=== PATIENT | male | born 1980 | race Caucasian/White ===

== ENCOUNTER 2020-02-23 14:34 | Emergency (ER) | payer SELFPAY ==
[2020-02-23 15:25] LABS: Absolute Lymphocytes (CBC) 1.9 K/uL (0.7-4.9); Basophils % 0.8 % (0-1.3); Hematocrit 42.7 % (39.6-49.0); Lymphocytes % 25.2 % (15.3-44.8); MPV 7.9 fL (7.6-11.3); RBC Red Blood Cell Count 5.06 M/uL (4.33-5.43)
[2020-02-23 15:44] LABS: ALT/SGPT 26 U/L (12-78); AST/SGOT 16 U/L (15-37); Albumin 3.7 g/dL (3.4-5.0); Alkaline Phosphatase 54 U/L (45-117); BUN Blood Urea Nitrogen 13 mg/dL (7-18); Bicarbonate 24 mmol/L (21-32); Bilirubin Direct < 0.1 mg/dL (0-0.2); Bilirubin Total 0.4 mg/dL (0.2-1.0); Glucose Level 105 mg/dL (74-106); Magnesium 1.8 mg/dL (1.8-2.4); NT PRO-BNP 114 pg/mL (<125); Potassium 3.6 mmol/L (3.5-5.1); Protein, Total 6.9 g/dL (6.4-8.2); Sodium Level 142 mmol/L (136-145); Troponin (Emerg Dept Use Only) < 0.02 ng/mL (0.0-0.045)
--- NOTE | 2020-02-23 15:49 | RAD REPORT ---
EXAM DESCRIPTION: RAD - Chest Single View - 02/23/2020 3:24 pm CLINICAL HISTORY: CHEST PAIN, left side COMPARISON: None TECHNIQUE: AP portable chest image was obtained 02/23/2020 3:24 pm . FINDINGS: Lungs are clear. Heart and vasculature are normal. No measurable pleural effusion and no p neumothorax. No acute bony abnormality seen. No acute aortic findings suspected. IMPRESSION: No acute cardiopulmonary process.
--- NOTE | 2020-02-23 16:01 | EDPHYS ---
Physician Documentation [facility] Name: Yamilet Enamorado Age: 39 yrs Sex: Male : 1980 Arrival Date: 02/23/2020 Time: 14:48 Bed 19 Private MD: ED Physician Jaylan Cancino HPI: 02/22 15:51 This 39 yrs old Male presents to ER via Ambulatory with complaints of Chest jr8 Pain. 15:51 The patient or guardian reports chest pain that is located primarily in the substernal jr8 area. The pain radiates to the left arm. Associated signs and symptoms: Pertinent positives: None. The chest pain is described as a heaviness. Duration: The patient or guardian reports multiple episodes, that are intermittent, that wax and wane, the episodes last approximately 5 minute(s). Modifying factors: The symptoms are alleviated by nothing. the symptoms are aggravated by nothing. Severity of pain: At its worst the pain was moderate in the emergency department the pain has resolved. The patient has not experienced similar symptoms in the past. The patient has not recently seen a physician. Stated that pain has been going on for about 5 days now. Historical: - Allergies: 14:51 No Known Allergies; iw - Home Meds: 14:51 None [Active]; iw - PMHx: 14:51 Hypertension; Anxiety; iw - PSHx: 14:51 neck; iw - Immunization history:: Adult Immunizations not up to date. - Social history:: Smoking status: Patient/guardian denies using tobacco, the patient reports quitting approximately 12 years ago. ROS: 15:51 Eyes: Negative for injury, pain, redness, and discharge, ENT: Negative for injury, jr8 pain, and discharge, Neck: Negative for injury, pain, and swelling, Respiratory: Negative for shortness of breath, cough, wheezing, and pleuritic chest pain, Abdomen/GI: Negative for abdominal pain, nausea, vomiting, diarrhea, and constipation, Back: Negative for injury and pain, MS/Extremity: Negative for injury and deformity, Skin: Negative for injury, rash, and discoloration, Neuro: Negative for headache, weakness, numbness, tingling, and seizure. 15:51 Cardiovascular: Positive for chest pain, Negative for edema, orthopnea, palpitations, paroxysmal nocturnal dyspnea. Exam: 15:51 Eyes: Pupils equal round and reactive to light, extra-ocular motions intact. Lids and jr8 lashes normal. Conjunctiva and sclera are non-icteric and not injected. Cornea within normal limits. Periorbital areas with no swelling, redness, or edema. ENT: Nares patent. No nasal discharge, no septal abnormalities noted. Tympanic membranes are normal and external auditory canals are clear. Oropharynx with no redness, swelling, or masses, exudates, or evidence of obstruction, uvula midline. Mucous membranes moist. Neck: Trachea midline, no thyromegaly or masses palpated, and no cervical lymphadenopathy. Supple, full range of motion without nuchal rigidity, or vertebral point tenderness. No Meningismus. Cardiovascular: Regular rate and rhythm with a normal S1 and S2. No gallops, murmurs, or rubs. Normal PMI, no JVD. No pulse deficits. Respiratory: Lungs have equal breath sounds bilaterally, clear to auscultation and percussion. No rales, rhonchi or wheezes noted. No increased work of breathing, no retractions or nasal flaring. Abdomen/GI: Soft, non-tender, with normal bowel sounds. No distension or tympany. No guarding or rebound. No evidence of tenderness throughout. Back: No spinal tenderness. No costovertebral tenderness. Full range of motion. Skin: Warm, dry with normal turgor. Normal color with no rashes, no lesions, and no evidence of cellulitis. MS/ Extremity: Pulses equal, no cyanosis. Neurovascular intact. Full, normal range of motion. Neuro: Awake and alert, GCS 15, oriented to person, place, time, and situation. Cranial nerves II-XII grossly intact. Motor strength 5/5 in all extremities. Sensory grossly intact. Cerebellar exam normal. Normal gait. 15:51 Chest/axilla: Normal chest wall appearance and motion. Nontender with no deformity. jr8 No lesions are appreciated. 15:51 ECG was reviewed by the Attending Physician. jr8 Vital Signs: 14:48 BP 142 / 98; Pulse 70; Resp 16; Temp 97.3; Pulse Ox 100% on R/A; Weight 97.52 kg; iw Height 5 ft. 6 in. (167.64 cm); Pain 4/10; 15:04 BP 138 / 90; Pulse 69; Resp 17; Pulse Ox 100% ; Pain 4/10; jl7 16:29 BP 130 / 91; Pulse 51; Resp 17 S; Pulse Ox 98% on R/A; jl7 14:48 Body Mass Index 34.70 (97.52 kg, 167.64 cm) iw MDM: 14:51 Patient medically screened. jr8 15:51 Differential diagnosis: abnormal EKG, acute myocardial infarction, acute pericarditis, jr8 anxiety, chest wall pain, cholecystitis, Cholelithiasis costochondritis, esophagitis, gastritis, herpes zoster, Amber-Lua syndrome, mitral valve prolapse, myocarditis, pleurisy, pneumonia, pulmonary embolus, stable angina, thoracic aortic disection, unstable angina. Data reviewed: vital signs, nurses notes, lab test result(s), EKG, radiologic studies, plain films. Data interpreted: Pulse oximetry: on room air is 100 %. Interpretation: normal. Counseling: I had a detailed discussion with the patient and/or guardian regarding: the historical points, exam findings, and any diagnostic results supporting the discharge/admit diagnosis, lab results, radiology results. 15:55 HEART Score: History: Moderately Suspicious (1), ECG: Normal (0), Age: < or = 45 [facility] (0), Risk Factors: > or = 3 Risk factors for atherosclerotic disease (2), [Hypercholesterolemia] [Hypertension] [+ Family HX] Troponin: < or = 1 x Normal Limit (0), Total Score = 3. ED course: Heart Score of 3...Low risk at this point. Pain free and hemodynamically stable. Has been intermittent for past 5 days. Nothing exacerbates the pain. ECG unremarkable. Recommend f/u with cardiology in next 48 hours for formal cardiology evaluation based on symptoms and family history . 02/22 15:02 Order name: Basic Metabolic Panel; Complete Time: 15:51 02/22 15:02 Order name: CBC with Diff; Complete Time: 15:43 02/22 15:02 Order name: LFT's; Complete Time: 15:51 02/22 15:02 Order name: Magnesium; Complete Time: 15:02/22 15:02 Order name: NT PRO-BNP; Complete Time: 15:02/22 15:02 Order name: PT-INR; Complete Time: 15:43 02/22 15:02 Order name: Troponin (emerg Dept Use Only); Complete Time: 15:51 02/22 15:02 Order name: XRAY Chest (1 view); Complete Time: 15:51 02/22 15:02 Order name: EKG; Complete Time: 15:03 02/22 15:02 Order name: Cardiac monitoring; Complete Time: 16:28 02/22 15:02 Order name: EKG - Nurse/Tech; Complete Time: 16:02/22 15:02 Order name: IV Saline Lock; Complete Time: 16:02/22 15:03 Order name: Labs collected and sent; Complete Time: 16:02/22 15:03 Order name: O2 Per Protocol; Complete Time: 16:02/22 15:03 Order name: O2 Sat Monitoring; Complete Time: 16: EC:51 Rate is 66 beats/min. Rhythm is regular, Normal Sinus Rhythm. QRS [place] is Normal. VT jr8 interval is normal at 162 msec. QRS interval is normal at 90 msec. QT interval is normal at 388 msec. No Q waves. T waves are Normal. No ST changes noted. Clinical impression: Normal ECG and No evidence of ischemia. Interpreted by me. Reviewed by me. Administered Medications: No medications were administered Disposition: 17:48 Co-signature as Attending Physician, Jaylan Cancino MD. rn Disposition: 02/23/20 16:01 Discharged to Home. Impression: Chest pain, unspecified. - Condition is Stable. - Discharge Instructions: Nonspecific Chest Pain. - Medication Reconciliation Form, Thank You Letter, Antibiotic Education, Prescription Opioid Use form. - Follow up: Haresh Ramirez MD; When: 48 Hours; Reason: Recheck today's complaints, Continuance of care, Re-evaluation by your physician. - Problem is new. - Symptoms are resolved. Signatures: Dispatcher [employer] Adamaris David RN RN iw Nieto, Roman, MD MD rn Roszak, Josh, BETO PÉREZ jr8 Silvina Mancini RN RN jl7 Corrections: (The following items were deleted from the chart) 16:34 16:01 02/23/2020 16:01 Discharged to Home. Impression: Chest pain, unspecified. jl7 Condition is Stable. Forms are Medication Reconciliation Form, Thank You Letter, Antibiotic Education, Prescription Opioid Use. Follow up: Haresh Ramirez; When: 48 Hours; Reason: Recheck today's complaints, Continuance of care, Re-evaluation by your physician. Problem is new. Symptoms are resolved. jr8
--- NOTE | 2020-02-23 16:01 | ER ---
Nurse's Notes [facility] Name: Yamilet Enamorado Age: 39 yrs Sex: Male : 1980 Arrival Date: 02/23/2020 Time: 14:48 Bed 19 Private MD: Diagnosis: Chest pain, unspecified Presentation: 02/22 14:48 Chief complaint: Patient states: chest pains on left side and down left arm for four iw days, intermittent, episodes last about 3-4 minutes, happens every 20 minutes, has eased up now. Coronavirus screen: At this time, the client does not indicate any symptoms associated with coronavirus-19. Ebola Screen: Patient negative for fever greater than or equal to 101.5 degrees Fahrenheit, and additional compatible Ebola Virus Disease symptoms Patient denies exposure to infectious person. Patient denies travel to an Ebola-affected area in the 21 days before illness onset. No symptoms or risks identified at this time. Initial Sepsis Screen: Does the patient meet any 2 criteria? No. Patient's initial sepsis screen is negative. Does the patient have a suspected source of infection? No. Patient's initial sepsis screen is negative. Risk Assessment: Do you want to hurt yourself or someone else? Patient reports no desire to harm self or others. Onset of symptoms was February 19, 2020. 14:48 Method Of Arrival: Ambulatory iw 14:48 Acuity: DONNA 3 iw Historical: - Allergies: 14:51 No Known Allergies; iw - Home Meds: 14:51 None [Active]; iw - PMHx: 14:51 Hypertension; Anxiety; iw - PSHx: 14:51 neck; iw - Immunization history:: Adult Immunizations not up to date. - Social history:: Smoking status: Patient/guardian denies using tobacco, the patient reports quitting approximately 12 years ago. Screenin:04 Abuse screen: Denies threats or abuse. Denies injuries from another. Nutritional jl7 screening: No deficits noted. Tuberculosis screening: No symptoms or risk factors identified. Fall Risk IV access (20 points). Total Don Fall Scale indicates No Risk (0-24 pts). Assessment: 14:55 General: Appears in no apparent distress. uncomfortable, Behavior is calm, cooperative, jl7 appropriate for age. Pain: Complains of pain in anterior aspect of left upper chest Pain radiates to left arm Pain currently is 4 out of 10 on a pain scale. Pain began 2-3 days ago. Is intermittent. Neuro: Level of Consciousness is awake, alert, obeys commands, Oriented to person, place, time, situation. Cardiovascular: Patient's skin is warm and dry. Rhythm is regular. Respiratory: Airway is patent Respiratory effort is even, unlabored, Respiratory pattern is regular, symmetrical. Derm: Skin is pink, warm \T\ dry. 15:04 Reassessment: ERP at bedside. jl7 Vital Signs: 14:48 BP 142 / 98; Pulse 70; Resp 16; Temp 97.3; Pulse Ox 100% on R/A; Weight 97.52 kg; iw Height 5 ft. 6 in. (167.64 cm); Pain 4/10; 15:04 BP 138 / 90; Pulse 69; Resp 17; Pulse Ox 100% ; Pain 4/10; jl7 16:29 BP 130 / 91; Pulse 51; Resp 17 S; Pulse Ox 98% on R/A; jl7 14:48 Body Mass Index 34.70 (97.52 kg, 167.64 cm) iw ED Course: 14:48 Patient arrived in ED. iw 14:50 Triage completed. iw 14:51 Chetan Cernshaw PA is PHCP. jr8 14:51 Jaylan Cancino MD is Attending Physician. jr8 14:51 Arm band placed on. iw 14:52 Silvina Mancini, VICKY is Primary Nurse. jl7 15:04 Patient has correct armband on for positive identification. Bed in low position. Call jl7 light in reach. Side rails up X 1. management technician on. Pulse ox on. NIBP on. 15:04 EKG done, by ED staff, reviewed by Chetan PÉREZ. Patient maintains SpO2 saturation jl7 greater than 95% on room air. 15:24 XRAY Chest (1 view) In Process Unspecified. EDMS 16:00 Haresh Ramirez MD is Referral Physician. jr8 16:29 No provider procedures requiring assistance completed. IV discontinued, intact, jl7 bleeding controlled, No redness/swelling at site. Pressure dressing applied. Administered Medications: No medications were administered Outcome: 16:01 Discharge ordered by . jr8 16:29 Discharged to home ambulatory. jl7 16:29 Condition: stable 16:29 Discharge instructions given to patient, Instructed on discharge instructions, follow up and referral plans. Demonstrated understanding of instructions, follow-up care. 16:34 Patient left the ED. jl7 Signatures: Dispatcher [employer] Adamaris David, RN Chetan Levin PA PA jr8 Silvina Mancini RN RN jl7
[2020-02-23 16:49] VITALS: TEMP 97.3
[2020-02-23 16:52] VITALS: BP 130/91; O2SAT 98
--- NOTE | 2020-02-24 12:18 | EKG ---
Test Date: 2020-02-23 Test Time: 14:58:07 Expediter Service Order: YEISON MEASUREMENT RESULTS: Intervals: Rate: 66 WV: 162 QRSD: 90 QT: 388 QTc: 406 [place]: P: 62 WV: 162 QRS: 25 T: 22 INTERPRETIVE STATEMENTS: Normal sinus rhythm Normal ECG No previous ECG available for comparison Electronically Signed On 02-24-20 12:15:11 CDT by Haresh Ramirez
== END 2020-02-23 16:34 | disposition home or self-care (01) ==
LOC: ER 14:34
DX: R07.9 Chest pain, unspecified (principal)
CPT/HCPCS: 36415; 71045; 80048; 80076; 83735; 83880; 84484; 85025; 85610; 93005; 99284

== ENCOUNTER 2021-10-04 07:24 | Emergency (ER) | payer BC, SELFPAY ==
--- OUTSIDE RECORDS SUMMARY | 2021-10-04 07:26 | XMS REPORT | Continuity of Care Document ---
:1980 Author Organization [facility] t Address [address] [place] [address] Care Team Providers Name Role Phone Pcp, Does Not Have A Primary Care Physician JAIME Attending Clinician Unavailable Only, Db Test Attending Clinician Unavailable Jaime [employer] Attending Clinician Payers Payer Name Policy Type Policy Number Effective Date Expiration Date S [facility] [id number] 2020 00:00:00 Problems This patient has no known problems. Allergies, Adverse Reactions, Alerts Allergy Allergy Status Severity Reaction(s) Onset Inactive Treating Comm ents Source Name Type Date Date Clinician NO KNOWN Drug Active [facility] ALLERGIE Class ity of [facility] Social History Social Habit Start Date Stop Date Quantity Comments Source Exposure to Not sure [facility] SARS-CoV-2 (event) Medica l Branch Sex Assigned At [birth year] [facility] 00:00:00 00:00:00 [facility] Smoking Status Start Date Stop Date Source Unknown if ever smoked [facility] Medications This patient has no known medications. Procedures This patient has no known procedures. 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
[2021-10-04] MEDS ORDERED: KETOROLAC 30 MG/ML INJ ONE (08:19)
[2021-10-04] MEDS ORDERED: MORPHINE 4 MG/ML SYR ONE (08:19)
[2021-10-04] MEDS ORDERED: TAMSULOSIN 0.4 MG SR CAP ONE (08:19)
[2021-10-04] MEDS ORDERED: ONDANSETRON 4 MG/2 ML VIAL ONE (08:20)
[2021-10-04] MEDS ORDERED: MAGNESIUM SULFATE 1 gm IVPB 1 GM/100 ML BAG IV ONE (08:20)
[2021-10-04 08:23] LABS: Absolute Lymphocytes (CBC) 1.8 K/uL (0.7-4.9); Hematocrit 46.5 % (39.6-49.0); Lymphocytes % 16.2 % (15.3-44.8); MPV 7.1 fL (7.6-11.3); RBC Red Blood Cell Count 5.61 M/uL (4.33-5.43)
--- NOTE | 2021-10-04 08:28 | RAD REPORT ---
EXAM DESCRIPTION: CT - Stone Protocol - 10/04/2021 7:57 am CLINICAL HISTORY: Flank pain. Flank pain, kidney stone suspected COMPARISON: No comparisons TECHNIQUE: Axial images were obtained without oral or IV contrast. Lack of contrast limits solid org an and vascular assessment. The [id number] spans the entirety of the system partially obscuring uppermost abdomen and lung bases. Coronal reformatted images were obtained and reviewed. All CT scans are performed using dose optimization technique as appropriate and may include automated exposure control or mA/KV adjustment according to patient size. FINDINGS: The lower lung day are clear. Imaged portions of the liver and spleen show no suspicious findings on non-contrast imaging. The panc reas and adrenal glands are normal. No pathologic lymphadenopathy in the abdomen or pelvis. Small left renal calculi are seen, largest measuring 3 mm without hydronephrosis. No right-sided ston e or hydronephrosis. No bowel obstruction, free air, free fluid or abscess. Normal appendix noted. No significant bony abnormality. IMPRESSION: Left nephrolithiasis without hydronephrosis.
[2021-10-04 08:34] LABS: Potassium 4.1 mmol/L (3.5-5.1)
[2021-10-04 08:43] LABS: Urine Blood Negative (Negative); Urine Glucose Negative (Negative); Urine Protein Negative (Negative); Urine Specific Gravity 1.025 (1.005-1.030)
[2021-10-04 08:57] LABS: Urine Amorphous Sediment 1+ /HPF (NONE SEEN); Urine Bacteria <20 /HPF (NONE SEEN); Urine Mucus 1+ /HPF (NONE SEEN); Urine RBC <5 /HPF (NONE SEEN)
--- NOTE | 2021-10-04 09:08 | EDPHYS ---
Physician Documentation [facility] Name: Yamilet Enamorado Age: 40 yrs Sex: Male : 1980 Arrival Date: 10/04/2021 Time: 07:31 Bed 11 Private MD: ED Physician Jaylan Cancino HPI: 10/04 08:25 This 40 yrs old Male presents to ER via Ambulatory with complaints of Kidney stone. rn 08:26 The patient complains of pain in the right low back. The pain radiates to the abdomen. rn Onset: The symptoms/episode began/occurred last night. Modifying factors: The symptoms are alleviated by nothing. the symptoms are aggravated by nothing. Associated signs and symptoms: Pertinent positives: hematuria, nausea, vomiting, Pertinent negatives: diarrhea, fever. Severity of pain: At its worst the pain was moderate in the emergency department the pain has improved. The patient has experienced similar episodes in the past. The patient has not recently seen a physician. Patient reports right lower back pain that radiates to the right groin, identical to previous kidney stones in the past. States has passed 4 kidney stones in the last week or so. Reports mild hematuria. No fever or chills. Positive for nausea and vomiting.. Historical: - Allergies: 07:36 No Known Allergies; ll1 - PMHx: 07:36 Anxiety; Hypertension; Kidney stone; ll1 - PSHx: 07:36 neck SX; ll1 - Immunization history:: Client reports receiving the 2nd dose of the Covid vaccine. - Social history:: Smoking status: Patient denies any tobacco usage or history of. - Family history:: not pertinent. - Hospitalizations: : No recent hospitalization is reported. ROS: 08:26 Constitutional: Negative for fever, chills, and weight loss, Eyes: Negative for injury, rn pain, redness, and discharge, Neck: Negative for injury, pain, and swelling, Cardiovascular: Negative for chest pain, palpitations, and edema, Respiratory: Negative for shortness of breath, cough, wheezing, and pleuritic chest pain, Abdomen/GI: For right lower quadrant abdominal pain with nausea and vomiting Back: Right flank and lower back pain : Positive for hematuria MS/Extremity: Negative for injury and deformity, Skin: Negative for injury, rash, and discoloration, Neuro: Negative for headache, weakness, numbness, tingling, and seizure. Exam: 08:26 Constitutional: This is a well developed, well nourished patient who is awake, alert, rn mild distress Head/Face: Normocephalic, atraumatic. Eyes: Periorbital areas with no swelling, redness, or edema. Cardiovascular: Regular rate and rhythm. No pulse deficits. Respiratory: No increased work of breathing, no retractions or nasal flaring. Abdomen/GI: Soft, non-tender Back: No spinal tenderness. No costovertebral tenderness. Full range of motion. Skin: Warm, dry MS/ Extremity: Pulses equal, no cyanosis. Neuro: Awake and alert, GCS 15 Vital Signs: 07:35 BP 150 / 110; Pulse 68; Resp 16; Temp 98.8; Pulse Ox 100% ; Weight 104.33 kg; Height 5 ll1 ft. 6 in. (167.64 cm); Pain 4/10; 07:35 Body Mass Index 37.12 (104.33 kg, 167.64 cm) ll1 MDM: 07:34 Patient medically screened. rn 09:05 Differential diagnosis: nephrolithiasis, pyelonephritis, UTI, appendicitis. Data rn reviewed: vital signs, nurses notes, lab test result(s), radiologic studies, CT scan, and as a result, I will discharge patient. Counseling: I had a detailed discussion with the patient and/or guardian regarding: the historical points, exam findings, and any diagnostic results supporting the discharge/admit diagnosis, lab results, radiology results, the need for outpatient follow up, to return to the emergency department if symptoms worsen or persist or if there are any questions or concerns that arise at home. Response to treatment: the patient's symptoms have mildly improved after treatment, and as a result, I will discharge patient. Special discussion: I discussed with the patient/guardian in detail that at this point there is no indication for admission to the hospital. It is understood, however, that if the symptoms persist or worsen the patient needs to return immediately for re-evaluation. ED course: Likely passed stone, no visible stone on right urinary system, also no other acute finding. Urine without infection. Will dc home with pain and nausea medication.. 10/04 07:40 Order name: CBC with Diff; Complete Time: 08:31 rn 10/04 07:40 Order name: Basic Metabolic Panel; Complete Time: 09:04 rn 10/04 07:40 Order name: Urine Microscopic Only; Complete Time: 09:04 rn 10/04 07:40 Order name: CT Stone Protocol; Complete Time: 08:31 rn 10/04 08:43 Order name: Urine Dipstick-Ancillary; Complete Time: 09:04 EDMS 10/04 07:40 Order name: IV Start; Complete Time: 09:28 rn 10/04 07:40 Order name: Urine Dipstick-Ancillary (obtain specimen); Complete Time: 09:04 rn Administered Medications: 08:15 Drug: Zofran (Ondansetron) 4 mg Route: IVP; Site: right antecubital; ss 08:15 Drug: Magnesium Sulfate 1 grams Route: IVPB; Infused Over: 1 hrs; Site: right ss antecubital; 08:15 Drug: Ketorolac 15 mg Route: IVP; Site: right antecubital; ss 08:43 Drug: Flomax (tamsulosin) 0.4 mg Route: PO; ss 08:44 Drug: morphine 4 mg {Note: RASS 0.} Route: IVP; Site: right antecubital; ss Disposition Summary: 10/04/21 09:07 Discharge Ordered Location: Home rn Problem: new rn Symptoms: have improved rn Condition: Stable rn Diagnosis - Flank pain - Recently passed kidney stone rn Followup: rn - With: Private Physician - When: As needed - Reason: Recheck today's complaints, Re-evaluation by your physician Discharge Instructions: - Discharge Summary Sheet rn - Kidney Stones rn - Dietary Guidelines to Help Prevent Kidney Stones rn Forms: - Medication Reconciliation Form rn - Thank You Letter rn - Antibiotic assistant attorney general - Prescription Opioid Use rn Prescriptions: - Tramadol 50 mg Oral Tablet - take 1 tablet by ORAL route every 8 hours as needed; 12 tablet; Refills: 0, rn Product Selection Permitted - ondansetron 4 mg Oral tablet,disintegrating - take 1 tablet by ORAL route every 8 hours As needed; 10 tablet; Refills: 0, rn Product Selection Permitted Signatures: Dispatcher [employer] Jaylan Fregoso MD MD rn Smirch, Shelby, RN RN ss Jaylen Quan, RN RN ll1
--- NOTE | 2021-10-04 09:08 | ER ---
Nurse's Notes [facility] Name: Yamilet Enamorado Age: 40 yrs Sex: Male : 1980 Arrival Date: 10/04/2021 Time: 07:31 Bed 11 Private MD: Diagnosis: Flank pain - Recently passed kidney stone Presentation: 10/04 07:35 Chief complaint: Patient states: R flank pain since last night. Dark, bloody urine. No ll1 fever or N/V/D. Coronavirus screen: Vaccine status: Patient reports receiving the 2nd dose of the covid vaccine. Client denies travel out of the [place] in the last 14 days. At this time, the client does not indicate any symptoms associated with coronavirus-19. Ebola Screen: Patient denies travel to an Ebola-affected area in the 21 days before illness onset. Initial Sepsis Screen: Does the patient meet any 2 criteria? No. Patient's initial sepsis screen is negative. Does the patient have a suspected source of infection? Yes: Dysuria/Frequency/Urgency/UTI. Risk Assessment: Do you want to hurt yourself or someone else? Patient reports no desire to harm self or others. Onset of symptoms was October 03, 2021. 07:35 Method Of Arrival: Ambulatory ll1 07:35 Acuity: DONNA 3 ll1 Historical: - Allergies: 07:36 No Known Allergies; ll1 - PMHx: 07:36 Anxiety; Hypertension; Kidney stone; ll1 - PSHx: 07:36 neck SX; ll1 - Immunization history:: Client reports receiving the 2nd dose of the Covid vaccine. - Social history:: Smoking status: Patient denies any tobacco usage or history of. - Family history:: not pertinent. - Hospitalizations: : No recent hospitalization is reported. Vital Signs: 07:35 BP 150 / 110; Pulse 68; Resp 16; Temp 98.8; Pulse Ox 100% ; Weight 104.33 kg; Height 5 ll1 ft. 6 in. (167.64 cm); Pain 4/10; 07:35 Body Mass Index 37.12 (104.33 kg, 167.64 cm) ll1 ED Course: 07:31 Patient arrived in ED. ds1 07:34 Jaylan Cancino MD is Attending Physician. rn 07:36 Triage completed. ll1 07:38 Arm band placed on Patient placed in an exam room, on a stretcher. ll1 07:59 CT Stone Protocol In Process Unspecified. EDMS 08:47 Jaylen Quan, RN is Primary Nurse. ll1 Administered Medications: 08:15 Drug: Zofran (Ondansetron) 4 mg Route: IVP; Site: right antecubital; 08:15 Drug: Magnesium Sulfate 1 grams Route: IVPB; Infused Over: 1 hrs; Site: right ss antecubital; 08:15 Drug: Ketorolac 15 mg Route: IVP; Site: right antecubital; 08:43 Drug: Flomax (tamsulosin) 0.4 mg Route: PO; 08:44 Drug: morphine 4 mg {Note: RASS 0.} Route: IVP; Site: right antecubital; Outcome: 09:07 Discharge ordered by . rn 09:28 Patient left the ED. 1 Signatures: Dispatcher [employer] [facility] Briseida Benjamin ds1 Jaylan Cancino MD MD rn Smirch, Shelby, RN RN ss Lewis, Lynsay, RN RN 1
[2021-10-04 09:33] VITALS: BP 150/110; TEMP 98.8; O2SAT 100
== END 2021-10-04 09:28 | disposition home or self-care (01) ==
LOC: ER 07:24
DX: R10.9 Unspecified abdominal pain (principal); Z87.442 Personal history of urinary calculi; I10 Essential (primary) hypertension
CPT/HCPCS: 85025; 80048; 36415; 76377; 74176; J3475; J2405; 81003; 81015; 96374; 96375; 99283